=== PATIENT | female | born 1950 | race Caucasian/White ===

== ENCOUNTER 2016-09-21 22:53 | Inpatient (IN) | payer OTHER ==
[~2016-09-21] VITALS: Ht 165.1 cm; Wt 82.1 kg
[~2016-09-21 22:53] MED LIST: AMBIEN10 MG PO; APIDRA100 UNITS/ SC; Ambien PO; BACTRIM,SEPT1 TABLET PO; CELEBREX200 MG PO; CILOSTAZOL100 MG PO; CYMBALTA30 MG PO; Ecotrin PO; Feosol PO; Glucophage PO; KLONOPIN0.5 M1 PO; KlonoPIN PO; LANTUS 3 M100 UNITS/ SC; LANTUS 3 M100 UNITS1 SC; LISINOPRIL20 MG PO; MELOXICAM7.5 MG PO; NOVOLOG PE100 UNITS/ SC; OSTEO BI-FLEX1 EAC1 PO; PLAVIX75 MG PO; PLETAL100 MG PO; PriLOSEC PO; SENOKOT S,PE1 TABLET PO; SIMVASTATIN20 MG PO; TOPROL XL100 MG PO; Vicodin,Norco 5/325 PO; WELLBUTRIN XL300 MG PO; Zestril,Prinivil PO
[2016-09-21 23:29] LABS: HEMATOCRIT 39.3 % (36.0-46.0); MCH 29.4 PG (29.0-34.0); MCHC 35.9 G/DL (30.0-36.0); MCV 81.9 FL (83-99); MEAN PLAT.VOLUME 9.4 uM^3 (9.5-12.4); PLATELET COUNT 138 K/uL (156-360); RBC DIS.WIDTH-CV 13.7 % (11.8-14.6); RBC DIS.WIDTH-SD 39.6 % (39-53); WHITE BLOOD COUNT 8.8 K/uL (4.1-10.2)
[2016-09-21 23:39] LABS: CHLORIDE 102 mEq/L (99-109); POTASSIUM 3.6 mEq/L (3.7-5.4); SODIUM 142 mEq/L (136-147)
[2016-09-21 23:41] LABS: GLUCOSE 147 mg/dL (70-99)
[2016-09-21 23:42] LABS: ANION GAP 13 MEQ/L (2-14)
[2016-09-21 23:43] LABS: TOTAL BILIRUBIN 1.2 mg/dL (0.0-1.0)
[2016-09-21 23:45] LABS: ALKALINE PHOSPHATASE 86 IU/L (3-129); GFR ESTIMATE (CALCULATED) 59 mL/min/
[2016-09-21 23:46] LABS: DIRECT BILIRUBIN 0.9 mg/dL (0.0-0.3); UREA NITROGEN (BUN) 29 mg/dL (9-23)
[2016-09-21 23:48] LABS: LIPASE 26 U/L (1.0-51.0)
[2016-09-21 23:49] LABS: TROP-I INTERPRETATION NEGATIVE; TROPONIN-I < 0.01 ng/mL (0.0-0.30)
[2016-09-22 00:09] LABS: D-DIMER ELISA 0.31 mg/L FEU (< 0.57)
[2016-09-22] MEDS ORDERED: LISINOPRIL2.5 MG PO (01:43)
[2016-09-22] MEDS ORDERED: TRAMADOL HCL50 MG PO (01:44)
[2016-09-22] MEDS ORDERED: CITRACAL W/V1 TABLE1 PO (01:44)
[2016-09-22] MEDS ORDERED: ECHINACEA380 MG PO (01:45)
[2016-09-22] MEDS ORDERED: CITALOPRAM HBR20 MG PO (01:46)
[2016-09-22 07:55] LABS: EOSINOPHIL (%) 0.2 % (0-5); HEMATOCRIT 36.6 % (36.0-46.0); IMMATURE GRANULOCYTE (%) 0.2 % (0.0-0.7); IMMATURE GRANULOCYTE COUNT 0.1 K/uL; LYMPHOCYTE COUNT 0.7 K/uL (1.0-2.8); MCH 29.3 PG (29.0-34.0); MCHC 35.2 G/DL (30.0-36.0); MEAN PLAT.VOLUME 9.7 uM^3 (9.5-12.4); MONOCYTE (%) 7.2 % (3-12); MONOCYTE COUNT 0.4 K/uL (0-0.8); NEUTROPHIL (%) 80.6 % (45-76); NEUTROPHIL COUNT 4.7 K/uL (1.8-6.4); PLATELET COUNT 131 K/uL (156-360); RBC DIS.WIDTH-CV 13.7 % (11.8-14.6); RBC DIS.WIDTH-SD 39.9 % (39-53); RED BLOOD COUNT 4.41 M/uL (3.80-5.20); WHITE BLOOD COUNT 5.8 K/uL (4.1-10.2)
[2016-09-22 08:00] LABS: CHLORIDE 109 mEq/L (99-109); POTASSIUM 3.8 mEq/L (3.7-5.4); SODIUM 143 mEq/L (136-147)
[2016-09-22 08:02] LABS: GLUCOSE 118 mg/dL (70-99)
[2016-09-22 08:04] LABS: ANION GAP 11 MEQ/L (2-14)
[2016-09-22 08:06] LABS: ALKALINE PHOSPHATASE 87 IU/L (3-129); GFR ESTIMATE (CALCULATED) > 59 mL/min/; TOTAL BILIRUBIN 1.8 mg/dL (0.0-1.0)
[2016-09-22 08:07] LABS: UREA NITROGEN (BUN) 28 mg/dL (9-23)
[2016-09-22 08:10] LABS: TROP-I INTERPRETATION NEGATIVE; TROPONIN-I < 0.01 ng/mL (0.0-0.30)
[2016-09-22 09:33] LABS: POINT-OF-CARE METER ID UU13113702
[2016-09-22 11:26] VITALS: BP 138/67
[2016-09-22 15:50] LABS: TROP-I INTERPRETATION NEGATIVE; TROPONIN-I < 0.01 ng/mL (0.0-0.30)
[2016-09-22 17:08] VITALS: BP 138/74
[2016-09-22 17:10] LABS: POINT-OF-CARE METER ID UU14149398
[2016-09-22 21:57] LABS: POINT-OF-CARE METER ID UU14149398
[2016-09-23] LABS: TROP-I INTERPRETATION NEGATIVE; TROPONIN-I < 0.01 ng/mL (0.0-0.30)
[2016-09-23 00:30] VITALS: BP 154/71
[2016-09-23 03:30] VITALS: BP 132/97
[2016-09-23 05:26] LABS: HEMATOCRIT 36.4 % (36.0-46.0); MCH 29.2 PG (29.0-34.0); MCHC 34.3 G/DL (30.0-36.0); MEAN PLAT.VOLUME 9.9 uM^3 (9.5-12.4); PLATELET COUNT 102 K/uL (156-360); RBC DIS.WIDTH-CV 13.8 % (11.8-14.6); RBC DIS.WIDTH-SD 42.3 % (39-53); RED BLOOD COUNT 4.28 M/uL (3.80-5.20); WHITE BLOOD COUNT 3.6 K/uL (4.1-10.2)
[2016-09-23 05:28] LABS: INTER. NORMALIZED RATIO 1.1; PROTHROMBIN TIME 11.2 (9.2-11.2); PTT 27.1 (25-32)
[2016-09-23 08:07] VITALS: BP 166/78
[2016-09-23 08:11] LABS: POINT-OF-CARE METER ID UU13113807
[2016-09-23 16:28] LABS: POINT-OF-CARE METER ID UU14149398
[2016-09-23 20:00] VITALS: BP 157/76
[2016-09-23 21:48] LABS: POINT-OF-CARE METER ID UU13113807
[2016-09-24] VITALS (7 sets, daily range): BP systolic 122–155; BP diastolic 64–81
[2016-09-24 07:16] LABS: HEMATOCRIT 37.5 % (36.0-46.0); MCH 28.8 PG (29.0-34.0); MCHC 33.6 G/DL (30.0-36.0); MCV 85.8 FL (83-99); MEAN PLAT.VOLUME 9.5 uM^3 (9.5-12.4); PLATELET COUNT 97 K/uL (156-360); RBC DIS.WIDTH-CV 14.2 % (11.8-14.6); RBC DIS.WIDTH-SD 43.4 % (39-53); RED BLOOD COUNT 4.37 M/uL (3.80-5.20); WHITE BLOOD COUNT 7.6 K/uL (4.1-10.2)
[2016-09-24 07:25] LABS: ALKALINE PHOSPHATASE 92 IU/L (3-129); ANION GAP 7 MEQ/L (2-14); CHLORIDE 104 MEQ/L (99-109); GFR ESTIMATE (CALCULATED) > 59 mL/min/; GLUCOSE 128 mg/dL (70-99); SAMPLE HEMOLYSIS CHECK 0; SAMPLE ICTERIC CHECK 0; SAMPLE LIPEMIA CHECK 0; SODIUM 141 MEQ/L (136-147); TOTAL BILIRUBIN 0.9 MG/DL (0.0-1.0); UREA NITROGEN (BUN) 13 mg/dL (9-23)
[2016-09-24 08:24] LABS: POINT-OF-CARE METER ID UU14149398
[2016-09-24 12:28] LABS: POINT-OF-CARE METER ID UU14149398
[2016-09-24 17:01] LABS: POINT-OF-CARE METER ID UU14149398
[2016-09-24 20:55] LABS: POINT-OF-CARE METER ID UU14149398
[2016-09-25 07:30] VITALS: BP 146/76
[2016-09-25 07:38] LABS: HEMATOCRIT 35.5 % (36.0-46.0); MCH 28.3 PG (29.0-34.0); MCHC 33.2 G/DL (30.0-36.0); MCV 85.1 FL (83-99); MEAN PLAT.VOLUME 9.8 uM^3 (9.5-12.4); PLATELET COUNT 98 K/uL (156-360); RBC DIS.WIDTH-CV 13.8 % (11.8-14.6); RBC DIS.WIDTH-SD 42.6 % (39-53); RED BLOOD COUNT 4.17 M/uL (3.80-5.20)
[2016-09-25 07:49] LABS: ALKALINE PHOSPHATASE 89 IU/L (3-129); ANION GAP 5 MEQ/L (2-14); CHLORIDE 105 MEQ/L (99-109); GFR ESTIMATE (CALCULATED) > 59 mL/min/; GLUCOSE 109 mg/dL (70-99); POTASSIUM 3.7 MEQ/L (3.7-5.4); SAMPLE HEMOLYSIS CHECK 0; SAMPLE ICTERIC CHECK 0; SAMPLE LIPEMIA CHECK 0; SODIUM 142 MEQ/L (136-147); UREA NITROGEN (BUN) 13 mg/dL (9-23); WHITE BLOOD COUNT 5.2 K/uL (4.1-10.2)
[2016-09-25 07:50] LABS: TOTAL BILIRUBIN 0.7 MG/DL (0.0-1.0)
[2016-09-25 15:32] VITALS: BP 149/83
[2016-09-25] MEDS ORDERED: NORCO 5/3251 TABLET PO (16:25)
== END 2016-09-25 19:04 | disposition home or self-care (01) | DRG 413 ==
LOC: EME 22:53 → EDOF 09-22 02:23 → 4SOUTH 09-22 02:23 → EDOF 09-22 02:23 → 2EAST 09-22 02:23 → 4SOUTH 09-22 10:57 → 2EAST 09-24 20:52
PROVIDERS: Internal Medicine; Surgery
DX: K80.64 Calculus of gallbladder and bile duct with chronic cholecystitis without obstruction (principal); I10 Essential (primary) hypertension; E11.9 Type 2 diabetes mellitus without complications; I73.9 Peripheral vascular disease, unspecified; I44.4 Left anterior fascicular block; K21.9 Gastro-esophageal reflux disease without esophagitis; F32.9 Major depressive disorder, single episode, unspecified; M79.7 Fibromyalgia; Z96.653 Presence of artificial knee joint, bilateral; Z79.02 Long term (current) use of antithrombotics/antiplatelets; M19.90 Unspecified osteoarthritis, unspecified site; I25.10 Atherosclerotic heart disease of native coronary artery without angina pectoris; E66.9 Obesity, unspecified; Z68.30 Body mass index [BMI] 30.0-30.9, adult; G89.18 Other acute postprocedural pain; Z86.718 Personal history of other venous thrombosis and embolism; Z95.820 Peripheral vascular angioplasty status with implants and grafts
CPT/HCPCS: 71020; 74300; 76705; 80048; 80053; 80076; 82948; 83690; 84484; 85025; 85027; 85379; 85610; 85730; 88304; 93005; 94799; 99281; 99285; C1725; C1769; C1894; C2625; G0378; J0330; J1100; J1170; J1650; J1815; J2405; J2710; J3010; J7030; J7120; S0020

== ENCOUNTER → 2016-11-02 | Outpatient (CLI) | payer OTHER ==
[~2016-11-02] VITALS: Ht 167.6 cm; Wt 74.8 kg
[~2016-11-02] MED LIST changes: +CELEXA20 MG PO; +CILOSTAZOL50 MG PO; +CITALOPRAM HBR20 MG PO; +CITRACAL W/V1 TABLE1 PO; +ECHINACEA380 MG PO; +LISINOPRIL2.5 MG PO; +NORCO 5/3251 TABLET PO; +TRAMADOL HCL50 MG PO
[2016-11-02 10:52] LABS: POINT-OF-CARE METER ID UU13113694
[2016-11-02 12:04] LABS: POINT-OF-CARE METER ID UU13113675
== END | disposition home or self-care (01) ==
LOC: AMB 09:30
PROVIDERS: Internal Medicine Gastroenterology
PROC: 0FC98ZZ Extirpation of Matter from Common Bile Duct, Via Natural or Artificial Opening Endoscopic (ICD-10-PCS; principal; 2016-11-02)
DX: K80.50 Calculus of bile duct without cholangitis or cholecystitis without obstruction (principal); Z46.89 Encounter for fitting and adjustment of other specified devices; E11.9 Type 2 diabetes mellitus without complications; I10 Essential (primary) hypertension; M19.90 Unspecified osteoarthritis, unspecified site
CPT/HCPCS: 74328; 82948; 87081; C1757; C1769; J0330; J2250; J2405; J2710; J3010